=== PATIENT | male | born 1990 ===

== ENCOUNTER 2020-09-06 04:23 | Emergency (ER) | payer SELFPAY ==
[~2020-09-06] VITALS: Ht 182.9 cm; Wt 105.0 kg
[2020-09-06 04:24] VITALS: BP 134/85
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
--- NOTE | 2020-09-06 05:03 | NUR ---
PT AMBULATORY WITH STEADY GAIT OUT OF DEPARTMENT WITH FATHER AND [employer]. PT CONTINUALLY YELLING AND RECORDING IN DEPARTMENT.
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
== END 2020-09-06 05:11 | disposition left against medical advice (07) ==
LOC: ED 04:53
DX: F10.120 Alcohol abuse with intoxication, uncomplicated (principal); R07.89 Other chest pain; Z72.9 Problem related to lifestyle, unspecified; Y90.0 Blood alcohol level of less than 20 mg/100 ml
CPT/HCPCS: 99283